=== PATIENT | female | born 1960 | race Caucasian/White ===

== ENCOUNTER 2021-05-07 22:07 | Emergency (ER) | payer BC ==
[~2021-05-07] VITALS: Ht 170.2 cm; Wt 59.0 kg
--- NOTE | 2021-05-07 22:36 | NUR ---
TO ER BED 1. BIBS C/O BUG BITE TO LEFT THIGH, REDNESS NOTED. PT CHANGED INTO GOWN. AWAITING MD JACOBSEN
[2021-05-07] MEDS ORDERED: predniSONE 20 MG TABLET ONE (23:09)
[2021-05-07] MEDS ORDERED: LORATADINE 10 MG TABLET ONE (23:10)
[2021-05-07] MEDS ORDERED: FAMOTIDINE (20 MG) 20 MG TABLET ONE (23:10)
[2021-05-07] MEDS: LORATADINE 10 MG TABLET PO SCH (23:15)
[2021-05-07] MEDS: FAMOTIDINE (20 MG) 20 MG TABLET PO ONE (23:15)
[2021-05-07] MEDS: predniSONE 50 MG TABLET PO ONE (23:15)
--- NOTE | 2021-05-08 | NUR ---
Patient discharged to home in stable condition. Written and verbal after care instructions given. Patient verbalizes understanding of instruction.
[2021-05-08 00:17] VITALS: BP 146/99
== END 2021-05-08 00:17 | disposition home or self-care (01) ==
LOC: ER 22:11
DX: T78.40XA Allergy, unspecified, initial encounter (principal); T63.311A Toxic effect of venom of black widow spider, accidental (unintentional), initial encounter; Y92.89 Other specified places as the place of occurrence of the external cause
CPT/HCPCS: 99284; J7512

== ENCOUNTER 2022-01-01 19:26 | Emergency (ER) | payer BC, OTHER ==
[~2022-01-01] VITALS: Ht 170.2 cm; Wt 61.2 kg
--- NOTE | 2022-01-01 23:05 | NUR ---
BIBSELF C/O GLF X ONE DAY C/O LEFT SIDE HEAD PAIN, LEFT SHOULDER ARM AND KNEE PAIN
--- NOTE | 2022-01-02 01:23 | NUR ---
Patient discharged to home in stable condition. Written and verbal after care instructions given. Patient verbalizes understanding of instruction. pt ambulatory with a steady gait
[2022-01-02 04:31] VITALS: BP 155/87
== END 2022-01-02 01:23 | disposition home or self-care (01) ==
LOC: ER 19:30
DX: S09.90XA Unspecified injury of head, initial encounter (principal); M54.2 Cervicalgia; Z60.2 Problems related to living alone; W18.30XA Fall on same level, unspecified, initial encounter; Y93.89 Activity, other specified; Y92.89 Other specified places as the place of occurrence of the external cause; Y99.8 Other external cause status
CPT/HCPCS: 70450-TC; 70486-TC; 71046; 72125-TC